=== PATIENT | male | born 1990 | race African-American/Black ===

== ENCOUNTER 2016-08-04 21:30 | Emergency (ER) | payer OTHER ==
[~2016-08-04] VITALS: Ht 165.1 cm; Wt 63.4 kg
[2016-08-04] MEDS ORDERED: AUGMENTIN875 MG PO (23:11)
[2016-08-04 23:31] VITALS: BP 137/75
== END 2016-08-04 23:31 | disposition left against medical advice (07) ==
LOC: RME 21:30 → EME 21:30 → RME 23:31
DX: S21.152A Open bite of left front wall of thorax without penetration into thoracic cavity, initial encounter (principal); W54.0XXA Bitten by dog, initial encounter
CPT/HCPCS: 99281; 99283